=== PATIENT | male | born 1970 | race Caucasian/White ===

== ENCOUNTER 2017-05-08 19:12 | Emergency (ER) | payer OTHER ==
[~2017-05-08] VITALS: Ht 177.8 cm; Wt 97.5 kg
[2017-05-08] MEDS ORDERED: PREDNISONE50 MG PO (20:25)
[2017-05-08] MEDS ORDERED: EPIPEN0.3 MG/0.1 IM (20:27)
[2017-05-08 20:44] VITALS: BP 128/67
== END 2017-05-08 20:30 | disposition home or self-care (01) ==
LOC: M.ERS 19:12
DX: T78.1XXA Other adverse food reactions, not elsewhere classified, initial encounter (principal); F17.210 Nicotine dependence, cigarettes, uncomplicated; X58.XXXA Exposure to other specified factors, initial encounter